=== PATIENT | female | born 1955 | race Caucasian/White ===

== ENCOUNTER 2019-01-09 04:39 | Emergency (ER) | payer MEDICARE ==
[2019-01-09 04:58] VITALS: BP 119/73; PULSE 99
[2019-01-09] MEDS ORDERED: Triamcinolone Acetonide 40 MG/ML 1 ML MDV IM ONE (05:27)
[2019-01-09] MEDS ORDERED: diphenhydrAMINE 25 MG Cap PO ONE (05:31)
--- NOTE | 2019-01-09 05:35 | EDM.PDOC ---
ED HPI GENERAL MEDICAL PROBLEM - General Chief Complaint: Skin Complaint Stated Complaint: RASH Time Seen by Provider: 01/09/19 05:29 Source of Information: Reports: Patient History Limitations: Reports: No Limitations - History of Present Illness INITIAL COMMENTS - FREE TEXT/NARRATIVE: pt has a rash on the bottom of her hands and feet. She does have a known history of ecyma. Onset: Other ( started yesterday. ) Duration: Hour(s): Location: Reports: Upper Extremity, Left, Upper Extremity, Right, Lower Extremity, Left, Lower Extremity, Right Quality: Reports: Ache, Other ( burning sensation) Associated Symptoms: Reports: Other ( her hands and feet are burning. ) - Related Data Allergies Allergy/AdvReac Type Severity Reaction Status Date / Time Sulfa (Sulfonamide Allergy Intermediate Rash Verified 01/09/19 04:58 Antibiotics) Home Meds: Home Meds Calcium Carb & Citrate/Vit D3 [Calcium + D3 ER Tablet] 1 tab PO BID 04/18/13 [ History] Citalopram Hydrobromide [Celexa] 10 mg PO .QOD 04/18/13 [History] Fexofenadine [Catherine] 180 mg PO DAILY PRN 04/18/13 [History] Fluticasone Propionate [Flonase] 1 spray NASBOTH DAILY PRN 04/18/13 [History] Gluc 2KCl/Chondr/Ethel Hy/Hy Ac [Glucosamine & Chondroitin Cap] 1 tab PO BID [History] Multivitamin [Multi-Vitamin Daily] 1 tab PO DAILY 04/18/13 [History] [place]-3 Fatty Acids [[place]-3] 1,000 mg PO BID 04/18/13 [History] Simvastatin [Zocor] 40 mg PO BEDTIME 04/18/13 [History] Citalopram Hydrobromide [Celexa] 5 mg PO .QOD 04/11/18 [History] Citalopram Hydrobromide [Celexa] 20 mg PO DAILY 04/11/18 [History] Estradiol [Estrace Vaginal] 1 applic VAG BEDTIME 04/11/18 [History] Triamcinolone Acetonide [Kenalog 0.1% Crm] 1 applic TOP BID 04/11/18 [History] Triamcinolone Acetonide [Triamcinolone Acetonide 0.5% Oint] 1 applic TOP BID [History] Past Medical History HEENT History: Reports: Impaired Vision Cardiovascular History: Reports: High Cholesterol Respiratory History: Reports: None Genitourinary History: Reports: Urinary Incontinence 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 Musculoskeletal History: Reports: Fracture Neurological History: Reports: Migraines Psychiatric History: Reports: Depression Oncologic (Cancer) History: Reports: Lung Other Oncologic History: carcinoids of the lung Dermatologic History: Reports: Eczema - Infectious Disease History Infectious Disease History: Reports: Chicken Pox, Measles - Past Surgical History Respiratory Surgical History: Reports: Other (See Below) Other Respiratory Surgeries/Procedures: one lung lobe removed from each lung GI Surgical History: Reports: Colonoscopy Female Surgical History: Reports: Hysterectomy, Salpingo-Oophorectomy Oncologic Surgical History: Reports: Lobectomy Social & Family History - Family History Family Medical History: Noncontributory - Tobacco Use Smoking Status *Q: Never Smoker - Caffeine Use Caffeine Use: Reports: None - Recreational Drug Use Recreational Drug Use: No ED ROS GENERAL - Review of Systems Review Of Systems: See Below Constitutional: Reports: No Symptoms HEENT: Reports: No Symptoms Respiratory: Reports: No Symptoms Cardiovascular: Reports: No Symptoms Endocrine: Reports: No Symptoms GI/Abdominal: Reports: No Symptoms : Reports: No Symptoms Skin: Reports: Rash, Other (pt has a rash on the palms of her hands and the bottom of her feet. ) Neurological: Reports: No Symptoms Psychiatric: Reports: Anxiety ED EXAM, SKIN/RASH Exam: See Below Text/Narrative:: pt arrived with a rash on the bottom of her feet and her hands. Exam Limited By: No Limitations General Appearance: Alert, Anxious, Moderate Distress Ears: Normal TMs Nose: Normal Inspection Throat/Mouth: Normal Inspection Head: Atraumatic Neck: Normal Inspection Respiratory/Chest: No Respiratory Distress Cardiovascular: Regular Rate, Rhythm Extremities: Other ( there is a rash on the bottom of her feet and the palms of her hands. ) Course - Vital Signs Last Recorded V/S: Last Vital Signs Temp 35.1 C L 01/09/19 04:57 Pulse 99 01/09/19 04:57 Resp 14 01/09/19 04:57 BP 119/73 01/09/19 04:57 Pulse Ox 94 L 01/09/19 04:57 - Orders/Labs/Meds Orders: Active Orders 24 hr Category Date Time Status Triamcinolone Acetonide [Kenalog-40] Med 01/09/19 05:27 Once 60 mg IM ASDIRECTED ONE - Re-Assessments/Exams Free Text/Narrative Re-Assessment/Exam: 01/09/19 05:34 this could be related to a viral illness. She was given kenalog 60 mg im. Pt can use benadryl 50 mg q6h Departure - Departure Time of Disposition: 05:35 Disposition: Home, Self-Care 01 Condition: Fair Clinical Impression: Rash and nonspecific skin eruption - Discharge Information Referrals: PCP,None [Primary Care Provider] - Care Plan Goals: cool pack, benadryl 50 mg q6h for burning and ithing - My Orders Last 24 Hours: My Active Orders 01/09/19 05:27 Triamcinolone Acetonide [Kenalog-40] 60 mg IM ASDIRECTED ONE - Assessment/Plan Last 24 Hours: My Active Orders 01/09/19 05:27 Triamcinolone Acetonide [Kenalog-40] 60 mg IM ASDIRECTED ONE
== END 2019-01-09 05:57 | disposition home or self-care (01) ==
LOC: JP.ED 04:39
DX: R21 Rash and other nonspecific skin eruption (principal); E78.00 Pure hypercholesterolemia, unspecified; G43.909 Migraine, unspecified, not intractable, without status migrainosus; F32.9 Major depressive disorder, single episode, unspecified; Z88.2 Allergy status to sulfonamides; Z79.899 Other long term (current) drug therapy; Z85.118 Personal history of other malignant neoplasm of bronchus and lung
CPT/HCPCS: 96372; 99282; A9270; J3301

== ENCOUNTER 2019-06-28 18:45 | Emergency (ER) | payer MEDICARE ==
[2019-06-28 19:05] VITALS: BP 133/72; PULSE 102
--- NOTE | 2019-06-28 19:16 | EDM.PDOC ---
ED HPI GENERAL MEDICAL PROBLEM - General Chief Complaint: General Stated Complaint: COUGH,FEVER,BODY ACHES Time Seen by Provider: 06/28/19 19:11 Source of Information: Reports: Patient History Limitations: Reports: No Limitations - History of Present Illness INITIAL COMMENTS - FREE TEXT/NARRATIVE: pt arrived after a 3 day history of a bad cough. She is not raising sputum. She did start with a temp of 101. Her temp today is 99. Onset: Other ( started 3 days ago. ) Duration: Hour(s): Location: Reports: Chest, Other (pt has been coughing markedly. ) Associated Symptoms: Reports: Cough, Fever/Chills - Related Data Allergies Allergy/AdvReac Type Severity Reaction Status Date / Time Sulfa (Sulfonamide Allergy Intermediate Rash Verified 06/28/19 18:55 Antibiotics) Home Meds: Home Meds Calcium Carb, Citrate/Vit D3 [Calcium + D3 ER Tablet] 1 tab PO BID 04/18/13 [ History] Citalopram Hydrobromide [Celexa] 10 mg PO .QOD 04/18/13 [History] Fexofenadine [Catherine] 180 mg PO DAILY PRN 04/18/13 [History] Fluticasone Propionate [Flonase] 1 spray NASBOTH DAILY PRN 04/18/13 [History] Glucosam/Chondr/Collagn/Hyalur [Glucosamine & Chondroitin Cap] 1 tab PO BID [History] Multivitamin [Multi-Vitamin Daily] 1 tab PO DAILY 04/18/13 [History] [place]-3 Fatty Acids [[place]-3] 1,000 mg PO BID 04/18/13 [History] Simvastatin [Zocor] 40 mg PO BEDTIME 04/18/13 [History] Citalopram Hydrobromide [Celexa] 5 mg PO .QOD 04/11/18 [History] Citalopram Hydrobromide [Celexa] 20 mg PO DAILY 04/11/18 [History] Triamcinolone Acetonide [Kenalog 0.1% Crm] 1 applic TOP BID 04/11/18 [History] Triamcinolone Acetonide [Triamcinolone Acetonide 0.5% Oint] 1 applic TOP BID [History] estradioL [Estrace Vaginal] 1 applic VAG BEDTIME 04/11/18 [History] Oxybutynin Chloride 2.5 mg PO BID 06/28/19 [History] cephALEXin [Keflex] 250 g PO DAILY 06/28/19 [History] Past Medical History HEENT History: Reports: Impaired Vision Cardiovascular History: Reports: High Cholesterol Respiratory History: Reports: None Genitourinary History: Reports: Urinary Incontinence, UTI, 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, Musculoskeletal History: Reports: Fracture Neurological History: Reports: Migraines Psychiatric History: Reports: Depression Oncologic (Cancer) History: Reports: Lung Other Oncologic History: carcinoids of the lung Dermatologic History: Reports: Eczema - Infectious Disease History Infectious Disease History: Reports: Chicken Pox, Measles, Shingles - Past Surgical History Respiratory Surgical History: Reports: Other (See Below) Other Respiratory Surgeries/Procedures: one lung lobe removed from each lung GI Surgical History: Reports: Colonoscopy Female Surgical History: Reports: Hysterectomy, Salpingo-Oophorectomy Oncologic Surgical History: Reports: Lobectomy Social & Family History - Family History Family Medical History: Noncontributory - Tobacco Use Smoking Status *Q: Never Smoker - Caffeine Use Caffeine Use: Reports: None - Recreational Drug Use Recreational Drug Use: No ED ROS GENERAL - Review of Systems Review Of Systems: See Below Constitutional: Reports: Fever, Chills, Malaise, Other (pt has slept alot of the day. ) HEENT: Reports: No Symptoms Respiratory: Reports: Shortness of Breath, Cough Cardiovascular: Reports: No Symptoms Endocrine: Reports: No Symptoms GI/Abdominal: Reports: No Symptoms : Reports: No Symptoms Musculoskeletal: Reports: No Symptoms ED EXAM, GENERAL - Physical Exam Exam: See Below Free Text/Narrative:: pt arrived with a history of a persistent couch for the past 3 days. She is not expectorating. Exam Limited By: No Limitations General Appearance: Alert, No Apparent Distress, Anxious Ears: Normal TMs Nose: Normal Inspection Throat/Mouth: Normal Inspection Head: Atraumatic Neck: Normal Inspection Respiratory/Chest: No Respiratory Distress, Other ( no wheezing or rales are noted. ) Cardiovascular: Regular Rate, Rhythm GI/Abdominal: Soft, Non-Tender (Female) Exam: Deferred Rectal (Female) Exam: Deferred Back Exam: Normal Inspection Extremities: Normal Inspection Course - Vital Signs Last Recorded V/S: Last Vital Signs Temp 37.2 C 03/05/20 19:04 Pulse 102 H 06/28/19 19:04 Resp 14 06/28/19 19:04 BP 133/72 06/28/19 19:04 Pulse Ox 96 06/28/19 19:04 - Orders/Labs/Meds Labs: Laboratory Tests 06/28/19 Range/Units 19:15 WBC 5.1 (4.5-11.0) K/uL RBC 4.55 (3.30-5.50) M/uL Hgb 13.8 (12.0-15.0) g/dL Hct 43.8 (36.0-48.0) % MCV 96 (80-98) fL MCH 30 (27-31) pg MCHC 32 (32-36) % Plt Count 216 (150-400) K/uL Neut % (Auto) 68 H (36-66) % Lymph % (Auto) 12 L (24-44) % [place] % (Auto) 18 H (2-6) % Eos % (Auto) 2 (2-4) % Baso % (Auto) 0 (0-1) % - Re-Assessments/Exams Free Text/Narrative Re-Assessment/Exam: 06/28/19 19:31 wbc is normal -- on the low side, her influ is neg. Departure - Departure Time of Disposition: 19:32 Disposition: Home, Self-Care 01 Condition: Fair Clinical Impression: Viral illness - Discharge Information Referrals: Renetta Meyer PA-C [Primary Care Provider] - Forms: ED Department Discharge Care Plan Goals: push fluids, cool mist humidifier, cough suppressin, rtc if cough is persistent over a wee and not improving. Sepsis Event Note - Evaluation Sepsis Screening Result: No Definite Risk - Focused Exam Vital Signs: Vital Signs Temp Pulse Resp BP Pulse Ox 06/28/19 19:04 37.2 C 102 H 14 133/72 96 Date Exam was Performed: 06/28/19 Time Exam was Performed: 19:31
== END 2019-06-28 19:49 | disposition home or self-care (01) ==
LOC: JP.ED 18:45
DX: B34.9 Viral infection, unspecified (principal); E78.00 Pure hypercholesterolemia, unspecified; F32.9 Major depressive disorder, single episode, unspecified; Z79.899 Other long term (current) drug therapy; Z88.2 Allergy status to sulfonamides
CPT/HCPCS: 36415; 85025; 87804; 87804-59; 99283

== ENCOUNTER 2021-04-16 08:25 | Day surgery (SDC) | payer MEDICARE ==
[~2021-04-16 08:25] MED LIST: Midazolam 1 MG/ML 2 ML SDV ONE; Propofol 200 MG/20 ML SDV ONE; fentaNYL 100 MCG/2 ML SDV ONE
[2021-04-16] MEDS ORDERED: Sodium Chloride 0.9% 1,000 ML IV SCH (09:00)
[2021-04-16 09:23] LABS: CORONAVIRUS COVID-19 NAA NEGATIVE (NEGATIVE)
[2021-04-16 10:42] VITALS: BP 98/61; PULSE 57
--- NOTE | 2021-04-16 12:51 | OR ---
DATE OF PROCEDURE: 04/16/2021 SURGEON: Homar Canseco MD PROCEDURE: Colonoscopy. FINDINGS: Ascending colon polyp, approximately 5 mm, completely removed using cold biopsy forceps. COMPLICATIONS: None. 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 ANESTHESIA: MAC. PREOPERATIVE DIAGNOSIS: Screening colonoscopy. POSTOPERATIVE DIAGNOSIS: Screening colonoscopy. RISKS: Risks, benefits, alternatives, and limitations including but not limited to infection, bleeding, perforation, false positives and false negatives were explained to the patient who wished to proceed. PROCEDURE IN DETAIL: The patient was placed in left lateral decubitus position. Digital rectal exam was performed without abnormality. Scope was introduced and advanced atraumatically. A photo was taken of the ileocecal valve. Scope was brought back to the colon. In the ascending colon, the aforementioned polyp was identified and completely removed. No other abnormalities were noted. No old or new blood. No masses. No polyps. No diverticulosis. No colitis. No abnormalities on retroflexion. The patient tolerated the procedure well. Greater than 8 minutes was spent removing the scope. Prep was acceptable, approximately 90% of the luminal surface could be seen. Homar Canseco MD /[id number]
== END 2021-04-16 10:55 | disposition home or self-care (01) ==
LOC: JP.SDS 08:25
PROVIDERS: ATTEND Surgery
DX: Z12.11 Encounter for screening for malignant neoplasm of colon (principal); D12.2 Benign neoplasm of ascending colon; E78.5 Hyperlipidemia, unspecified; Z01.812 Encounter for preprocedural laboratory examination; Z20.822 Contact with and (suspected) exposure to COVID-19; Z88.2 Allergy status to sulfonamides
CPT/HCPCS: 0241U; 45380; 88305; J2250; J2704; J3010; J7030

== ENCOUNTER 2022-10-22 06:36 | Day surgery (SDC) | payer MEDICARE ==
[2022-10-22] MEDS ORDERED: Sodium Chloride 0.9% 1,000 ML IV SCH (07:15)
[2022-10-22] MEDS ORDERED: Propofol 200 MG/20 ML SDV ONE (07:20)
[2022-10-22] MEDS ORDERED: fentaNYL 100 MCG/2 ML SDV ONE (08:00)
[2022-10-22] MEDS ORDERED: Midazolam 1 MG/ML 2 ML SDV ONE (08:00)
[2022-10-22 09:50] VITALS: BP 105/72; PULSE 69
== END 2022-10-22 10:00 | disposition home or self-care (01) ==
LOC: JP.SDS 06:36
PROVIDERS: ATTEND Surgery
DX: K22.89 Other specified disease of esophagus (principal); K21.9 Gastro-esophageal reflux disease without esophagitis; R10.13 Epigastric pain; C34.90 Malignant neoplasm of unspecified part of unspecified bronchus or lung; F32.A Depression, unspecified; F41.9 Anxiety disorder, unspecified; E66.9 Obesity, unspecified; Z88.2 Allergy status to sulfonamides
CPT/HCPCS: 43239; 88305; J2250; J2704; J3010; J7030

== ENCOUNTER 2023-12-01 07:38 | Day surgery (SDC) | payer MEDICARE ==
[~2023-12-01 07:38] MED LIST changes: -fentaNYL 100 MCG/2 ML SDV ONE; +fentaNYL 50 MCG/ML SDV ONE
[2023-12-01] MEDS: Sodium Chloride 0.9% 1,000 ML IV SCH (08:02)
[2023-12-01 11:51] VITALS: BP 102/57; PULSE 52
== END 2023-12-01 12:05 | disposition home or self-care (01) ==
LOC: JP.SDS 07:38
PROVIDERS: ATTEND Surgery
DX: Z12.11 Encounter for screening for malignant neoplasm of colon (principal); D12.3 Benign neoplasm of transverse colon; K57.30 Diverticulosis of large intestine without perforation or abscess without bleeding; E78.5 Hyperlipidemia, unspecified; F32.A Depression, unspecified; Z88.2 Allergy status to sulfonamides
CPT/HCPCS: 00811; 45385; J2250; J2704; J3010; J7030

== ENCOUNTER 2024-07-18 08:17 | Day surgery (SDC) | payer MEDICARE ==
[~2024-07-18 08:17] MED LIST changes: +Bupivacaine 0.5%/EPINEPHrine 1:200,000 50 ML MDV ONE; +ceFAZolin 2 GM in Premix Bag 1 BAG IV ONE; +ceFAZolin 2 GM in Sodium Chloride 0.9% 100 ML IV ONE; +fentaNYL 100 MCG/2 ML SDV ONE; -fentaNYL 50 MCG/ML SDV ONE
[2024-07-18 09:04] VITALS: BP 111/63; PULSE 65
[2024-07-18] MEDS: Sodium Chloride 0.9% 1,000 ML IV SCH (09:04)
[2024-07-18] MEDS: metroNIDAZOLE/Normal Saline 500 MG in Premix Bag 1 BAG IV ONE (09:30)
== END 2024-07-18 10:45 | disposition home or self-care (01) ==
LOC: JP.SDS 08:17
PROVIDERS: ATTEND Surgery
DX: L98.8 Other specified disorders of the skin and subcutaneous tissue (principal); Z53.8 Procedure and treatment not carried out for other reasons
CPT/HCPCS: 76998; J1836; J2250; J2704; J3010; J3490; J7030